=== PATIENT | female | born 1960 | race Caucasian/White ===

== ENCOUNTER → 2017-05-07 | Outpatient (CLI) | payer OTHER ==
--- NOTE | 2017-05-07 13:42 | REP ---
WHOLE BODY BONE SCAN: HISTORY: Breast carcinoma new onset left hip pain. Question metastasis. No comparison study. TECHNIQUE: 21.4 mCi technetium 99m MDP is injected and standard whole body radionuclide bone scan is acquired. FINDINGS: There is a normal distribution of skeletal tracer with uptake in bilateral kidneys and in the urinary bladder. There is no evidence to suggest skeletal metastatic disease. No abnormal hip or pelvic uptake is seen. There is some degenerative disc uptake at L5-S1. Mild degenerative uptake is seen in the acromioclavicular joints bilaterally. IMPRESSION: No evidence to suggest skeletal metastatic disease. Signed by Iggy Chu MD 05/07/2017 04:34 P
== END ==
LOC: M RAD 09:26
PROVIDERS: ATTEND Internal Medicine Medical Oncology
DX: M25.552 Pain in left hip (principal); C50.919 Malignant neoplasm of unspecified site of unspecified female breast

== ENCOUNTER → 2017-05-23 | Outpatient (CLI) | payer OTHER ==
--- NOTE | 2017-05-24 17:14 | ECHO ---
DATE OF PROCEDURE: 05/23/2017 AGE: 56 GENDER: Female HEIGHT: 65 inches WEIGHT: 135 pounds BODY SURFACE AREA: 1.67 m2 PATIENT LOCATION: Outpatient. REFERRING PHYSICIAN: Nataliya Chacon MD INDICATION: Shortness of breath. 2D MEASUREMENTS: RV: 2.8 cm LV: 4.6 cm Septum: 0.9 cm Posterior wall: 0.9 cm Aortic root: 3.0 cm LA: 3.3 cm LVEF: 65% DOPPLER MEASUREMENTS: AV: 1.1 m/s LVOT: 0.8 m/s LVOT diameter: 2.0 cm MV-E: 75, A: 60, EA ratio: 1.2 Early mitral deceleration time: 165 ms E prime: 8, A prime: 12, EA ratio: 9.3 PV: 0.8 m/s Pulmonary artery acceleration time: 148 ms RVSP: 23 mmHg IVC: 1.6 cm COMMENTS: Normal sinus rhythm/sinus bradycardia without intraventricular conduction disturbance. Normal cardiac chamber sizes and left ventricle (LV) wall thickness. On real- time imaging from the parasternal and apical projections, wall motion was symmetrical and normal to hyperkinetic. Mildly thickened mitral valvular apparatus with adequate leaflet excursion and no posterior systolic buckling. Three equal sized aortic cusps of normal thickness and cusp separation. Normal aortic root size. No apparent intracardiac mass or pericardial effusion. Color flow Doppler study taken from the parasternal and apical projections showed very mild mitral and only trace tricuspid, but no aortic insufficiency. Guided continuous wave Doppler of her LV outflow tract taken from the apical four chamber projection showed normal peak systolic velocity against outflow tract obstruction. Pulsed and continuous wave Doppler of her LV inflow tract taken from the apical four chamber projection showed normal diastolic filling velocities against mitral stenosis. The filling pattern was also normal against LV diastolic dysfunction and estimated mean left atrial pressure at this time using pulsed and tissue Doppler was within normal limits. Pulsed and continuous wave Doppler of her pulmonary trunk showed a normal peak systolic velocity against right ventricle (RV) outflow obstruction. Her pulmonary artery acceleration time was normal against an elevated pulmonary vascular resistance. Guided continuous wave Doppler of her tricuspid valve allowed out estimation of her right ventricular systolic pressure (within normal limits). Her inferior vena cava was of normal size with normal respiratory collapse against an elevated central venous pressure. CONCLUSIONS: Normal left ventricular size, wall thickness and wall motion. Normal left atrial size and Doppler assessment of LV diastolic function and estimated mean left atrial pressure. Normal right heart chamber sizes and estimated pulmonary arterial pressure. Mild myxomatous thickening of the mitral valvular apparatus without functional valvular abnormality. MTDD
== END ==
LOC: M CARPUL 09:48
PROVIDERS: ATTEND Internal Medicine Medical Oncology
DX: R06.02 Shortness of breath (principal); C50.919 Malignant neoplasm of unspecified site of unspecified female breast

== ENCOUNTER → 2017-09-03 | Outpatient (CLI) | payer OTHER ==
[2017-09-03 13:24] LABS: BASO # 0.1 10^3/uL (0.0-0.2); BASO % 1.3 % (0.0-1.0); EOS # 0.1 10^3/uL (0.0-0.50); EOS % 2.9 % (0.0-3.0); IMMATURE GRANULOCYTE % 0.2 % (0-0); LYMPH # 1.3 10^3/uL (1.5-4.5); MEAN CORPUSCULAR HEMOGLOBIN 30.5 pg (27.0-33.0); MEAN CORPUSCULAR HGB CONC 33.8 g/dl (32.0-36.5); MEAN CORPUSCULAR VOLUME 90.2 fl (80.0-96.0); MONO # 0.3 10^3/uL (0.0-0.8); MONO % 6.7 % (0.0-5.0); NEUTROPHILS # 2.7 10^3/uL (1.8-7.7); NEUTROPHILS % 60.9 % (36.0-66.0); PLATELET COUNT, AUTOMATED 191 10^3/uL (150-450); WHITE BLOOD COUNT 4.5 10^3/uL (4.0-10.0)
[2017-09-03 13:35] LABS: INR 0.97
== END ==
LOC: M SMT 08:19
PROVIDERS: ATTEND Ophthalmology
DX: H11.30 Conjunctival hemorrhage, unspecified eye (principal)

== ENCOUNTER → 2018-05-16 | Outpatient (CLI) | payer OTHER ==
[2018-05-16 14:01] LABS: ANION GAP 5 MEQ/L (8-16); BLOOD UREA NITROGEN 19 MG/DL (7-18); CALCIUM LEVEL 8.8 MG/DL (8.5-10.1); CARBON DIOXIDE LEVEL 32 MEQ/L (21-32); CHLORIDE LEVEL 104 MEQ/L (98-107); CREATININE FOR GFR 0.94 MG/DL (0.55-1.30); GLOMERULAR FILTRATION RATE > 60.0 (>51); GLUCOSE, FASTING 83 MG/DL (70-100); POTASSIUM SERUM 4.2 MEQ/L (3.5-5.1); SODIUM LEVEL 141 MEQ/L (136-145)
== END ==
LOC: M SMT 08:00
DX: C50.911 Malignant neoplasm of unspecified site of right female breast (principal); Z17.0 Estrogen receptor positive status [ER+]
CPT/HCPCS: 80048

== ENCOUNTER → 2019-06-01 | Outpatient (CLI) | payer OTHER ==
[~2019-06-01] MED LIST: CO Q200C10 PO; EFFE75CA2 PO; FLAX100012 PO; LUTE20TA PO; MAGN250T9 PO; MULT1TAB18 PO; PRESCAP PO; VIACTIV 500-5001 CHW PO
[2019-06-01 13:25] LABS: ALBUMIN 4.2 GM/DL (3.2-5.2); ALT/SGPT 19 U/L (12-78); BILIRUBIN,TOTAL 0.4 MG/DL (0.2-1.0); BLOOD UREA NITROGEN 15 MG/DL (7-18); CALCIUM LEVEL 9.4 MG/DL (8.5-10.1); CARBON DIOXIDE LEVEL 31 MEQ/L (21-32); CHLORIDE LEVEL 105 MEQ/L (98-107); CHOLESTEROL LEVEL 199 MG/DL (<200); CHOLESTEROL RISK RATIO 2.261 (<5); CREATININE FOR GFR 0.77 MG/DL (0.55-1.30); GLOMERULAR FILTRATION RATE > 60.0 (>51); GLUCOSE, FASTING 86 MG/DL (70-100); HDL CHOLESTEROL 88 MG/DL (>40); LDL CHOLESTEROL 97 MG/DL (<100); NON-HDL-C 111 MG/DL; POTASSIUM SERUM 4.5 MEQ/L (3.5-5.1); SODIUM LEVEL 141 MEQ/L (136-145); TOTAL PROTEIN 6.8 GM/DL (6.4-8.2); TRIGLYCERIDES LEVEL 68 MG/DL (<150)
== END ==
LOC: M SMT 08:16
PROVIDERS: ATTEND Family Medicine
DX: Z13.220 Encounter for screening for lipoid disorders (principal); Z13.1 Encounter for screening for diabetes mellitus